=== PATIENT | male | born 1955 | race Caucasian/White ===

== ENCOUNTER 2016-10-30 14:28 | Emergency (ER) | payer MEDICAID, OTHER ==
[2016-10-30] MEDS ORDERED: Bacitracin Zinc 1 Packet ONE (15:19)
[2016-10-30] MEDS ORDERED: Sulfameth/Trimethoprim DS 800-160mg TAB ONE (15:24)
--- NOTE | 2016-10-30 23:49 | RAD ---
LEFT THIRD FINGER: Date: 10-30-16 FINDINGS: Three views show a soft tissue laceration. No fracture or opaque foreign body was seen. There are no acute joint abnormalities. There are probably old post-traumatic degenerative changes in the first carpal metacarpal joint. IMPRESSION: No acute bony findings. POS: HOME
== END 2016-10-30 15:29 | disposition home or self-care (01) ==
LOC: BURERS 14:28
DX: S61.213A Laceration without foreign body of left middle finger without damage to nail, initial encounter (principal); I10 Essential (primary) hypertension; E78.5 Hyperlipidemia, unspecified; I25.10 Atherosclerotic heart disease of native coronary artery without angina pectoris; I25.2 Old myocardial infarction; Z79.899 Other long term (current) drug therapy; W20.8XXA Other cause of strike by thrown, projected or falling object, initial encounter
CPT/HCPCS: 12002; J2001

== ENCOUNTER 2017-04-15 01:07 | Emergency (ER) | payer OTHER ==
[2017-04-15] MEDS ORDERED: Nitroglycerin 50 MG/250 ML BOT 250 ML ONE (01:19)
[2017-04-15] MEDS ORDERED: Furosemide 100 MG/10 ML VIAL ONE (01:19)
[2017-04-15 01:25] LABS: #Basophils 0.1 thou/uL (0.0-0.2); #Eosinphils 0.6 thou/uL (0.0-0.7); #Monocytes 0.6 thou/uL (0.11-0.59); #Neutrophils 5.2 thou/uL (1.40-6.50); %Basophils 1.3 % (0.0-1.0); %Eosinophils 6.7 % (0.0-10.0); %Lymphocytes 30.9 % (21.0-51.0); %Monocytes 6.7 % (0.0-10.0); %Neutrophils 54.4 % (42.0-75.0); Hemoglobin 13.1 g/dL (14.0-18.0); Mean Corpuscular HGB CONC 32.2 g/dL (32.0-36.0); Mean Corpuscular Hemoglobin 29.4 pg (27.0-31.0); Mean Corpuscular Volume 91.3 fl (80.0-94.0); Mean Platelet Volume 6.8 fL (7.4-10.4); Platelet Count 280 thou/uL (130-400); RBC Distribution Width 13.6 % (11.5-14.5); Red Blood Cell (RBC) Count 4.47 mill/uL (4.70-6.10); White Blood Cell (WBC) Count 9.6 thou/uL (4.8-10.8)
[2017-04-15 01:43] LABS: CKMB 2.1 ng/mL (0-6.6); Troponin I 0.052 ng/mL (< 0.028)
[2017-04-15 01:52] LABS: ALT (SGPT) 30 U/L (8-55); AST (SGOT) 45 U/L (5-34); Albumin 3.8 g/dL (3.4-4.8); Alkaline Phosphatase 83 U/L (40-150); Anion Gap 14 mmol/L (10-20); BUN (Urea Nitrogen) 43 mg/dL (8.4-25.7); Bilirubin, Total 0.4 mg/dL (0.2-1.2); Calc. Creatinine Clearance 0 mL/min (70-130); Calcium 8.8 mg/dL (7.8-10.44); Carbon Dioxide 22 mmol/L (23-31); Chloride 110 mmol/L (98-107); Estimated GFR-MDRD 23; Glucose 126 mg/dL (80-115); Potassium 4.1 mmol/L (3.5-5.1); Protein, Total 7.8 g/dL (5.8-8.1); Sodium 142 mmol/L (136-145)
[2017-04-15] MEDS ORDERED: Lisinopril 5 MG TAB ONE (01:52)
[2017-04-15 02:19] LABS: Bilirubin Negative (Negative); Blood, Urine Small (Negative); Clarity Clear (Clear); Glucose, Urine (Dipstick) Negative (Negative); Leukocyte Negative (Negative); Nitrite Negative (Negative); Specific Gravity, Urine 1.025 (1.005-1.030); Urobilinogen 0.2 mg/dL (0.2-1.0); pH, Urine 6.5 (5.0-9.0)
[2017-04-15 02:20] LABS: Protein, Urine (Dipstick) > or equal to 300 mg/dL (Neg-Trace)
[2017-04-15 02:25] LABS: Bacteria/HPF Rare-Few HPF (None Seen); Squamous Epithelial 0-3 HPF (0-3); WBC/HPF 0-3 HPF (0-3)
--- NOTE | 2017-04-15 09:00 | RAD ---
PORTABLE CHEST: HISTORY: Shortness of breath. COMPARISON: 12/19/15. FINDINGS: Cardiomegaly with postop sternotomy change. Mild vascular congestion. Interstitial prominence sugge sts interstitial congestion. No significant effusion. No confluent infiltrate. IMPRESSION: Cardiomegaly with mild congestive changes as noted. POS: [facility]
== END 2017-04-15 03:30 | disposition home or self-care (01) ==
LOC: BURERS 01:07
DX: I13.0 Hypertensive heart and chronic kidney disease with heart failure and stage 1 through stage 4 chronic kidney disease, or unspecified chronic kidney disease (principal); I50.9 Heart failure, unspecified; N18.3 Chronic kidney disease, stage 3 (moderate); Z91.14 Patient's other noncompliance with medication regimen; E78.5 Hyperlipidemia, unspecified; I25.2 Old myocardial infarction; I25.10 Atherosclerotic heart disease of native coronary artery without angina pectoris
CPT/HCPCS: 71010; 80053; 81003; 81015; 82553; 83880; 84484; 85025; 93005; 94640; 94660; 94760; 96365; 96366; 96375; J1940; J7620

== ENCOUNTER 2017-07-13 21:39 | Emergency (ER) | payer OTHER ==
[2017-07-13] MEDS ORDERED: Nitroglycerin 0.4 MG TAB (25 Tab Bottle) ONE ×2 (21:53→21:54)
[2017-07-13] MEDS ORDERED: Metoprolol Tartrate 5 MG/5 ML VIAL ONE ×2 (21:53→22:02)
[2017-07-13] MEDS ORDERED: Nitroglycerin 50 MG/250 ML BOT 250 ML ONE (21:54)
[2017-07-13 22:03] LABS: #Basophils 0.1 thou/uL (0.0-0.2); #Eosinphils 0.7 thou/uL (0.0-0.7); #Lymphocytes 2.8 thou/uL (1.20-3.40); #Monocytes 0.8 thou/uL (0.11-0.59); #Neutrophils 5.5 thou/uL (1.40-6.50); %Basophils 1.4 % (0.0-1.0); %Eosinophils 6.9 % (0.0-10.0); %Lymphocytes 28.6 % (21.0-51.0); %Monocytes 7.7 % (0.0-10.0); %Neutrophils 55.4 % (42.0-75.0); Hemoglobin 14.7 g/dL (14.0-18.0); Mean Corpuscular HGB CONC 35.4 g/dL (32.0-36.0); Mean Corpuscular Hemoglobin 30.5 pg (27.0-31.0); Mean Corpuscular Volume 86.3 fl (80.0-94.0); Mean Platelet Volume 7.8 fL (7.4-10.4); Platelet Count 256 thou/uL (130-400); RBC Distribution Width 13.9 % (11.5-14.5); Red Blood Cell (RBC) Count 4.81 mill/uL (4.70-6.10); White Blood Cell (WBC) Count 9.9 thou/uL (4.8-10.8)
[2017-07-13 22:17] LABS: ALT (SGPT) 20 U/L (8-55); AST (SGOT) 15 U/L (5-34); Albumin 3.6 g/dL (3.4-4.8); Alkaline Phosphatase 96 U/L (40-150); Anion Gap 16 mmol/L (10-20); BUN (Urea Nitrogen) 55 mg/dL (8.4-25.7); Bilirubin, Total 0.2 mg/dL (0.2-1.2); Calc. Creatinine Clearance 0 mL/min (70-130); Calcium 9.3 mg/dL (7.8-10.44); Carbon Dioxide 20 mmol/L (23-31); Chloride 106 mmol/L (98-107); Estimated GFR-MDRD 20; Globulin 3.5 g/dL (2.4-3.5); Glucose 116 mg/dL (80-115); Lipase 65 U/L (8-78); Potassium 4.3 mmol/L (3.5-5.1); Protein, Total 7.1 g/dL (5.8-8.1); Sodium 138 mmol/L (136-145)
[2017-07-13 22:18] LABS: CKMB 1.6 ng/mL (0-6.6); Troponin I 0.046 ng/mL (< 0.028)
[2017-07-13] MEDS ORDERED: Enoxaparin Sodium 100 MG/ML SYRINGE ONE (22:31)
[2017-07-13] MEDS ORDERED: Furosemide 40 MG/4 ML VIAL ONE (22:31)
[2017-07-13] MEDS ORDERED: Ondansetron HCl/PF 4 MG/2 ML Vial ONE (22:31)
[2017-07-13] MEDS ORDERED: Ketorolac Tromethamine 30 MG/ML VIAL ONE (22:48)
[2017-07-14] MEDS ORDERED: Acetaminophen/Codeine 120-12MG/5 ML UDCUP ONE (09:09)
--- NOTE | 2017-07-14 09:15 | RAD ---
PORTABLE CHEST: Date: 07/13/17 An AP portable film at 2149 hours is compared to the 04/15/17 study. FINDINGS: Moderate cardiomegaly is about the same as before. There are no clear congestive changes or pleural e ffusions. No focal pulmonary infiltrates are seen. IMPRESSION: Moderate cardiomegaly. POS: HOME
== END 2017-07-13 22:59 | disposition left against medical advice (07) ==
LOC: BURERS 21:39
DX: I20.0 Unstable angina (principal); I13.0 Hypertensive heart and chronic kidney disease with heart failure and stage 1 through stage 4 chronic kidney disease, or unspecified chronic kidney disease; N18.9 Chronic kidney disease, unspecified; I50.9 Heart failure, unspecified; J44.9 Chronic obstructive pulmonary disease, unspecified; F17.210 Nicotine dependence, cigarettes, uncomplicated; Z79.899 Other long term (current) drug therapy
CPT/HCPCS: 71045; 80053; 82553; 83690; 83880; 84484; 85025; 93005; 94760; 96365; 96375; J1650; J1885; J1940; J2270; J2405

== ENCOUNTER 2017-07-30 21:44 | Emergency (ER) | payer OTHER ==
[2017-07-30] MEDS ORDERED: Nitroglycerin 0.4 MG TAB (25 Tab Bottle) ONE (21:52)
[2017-07-30 22:07] LABS: #Basophils 0.1 thou/uL (0.0-0.2); #Eosinphils 0.6 thou/uL (0.0-0.7); #Lymphocytes 2.4 thou/uL (1.20-3.40); #Monocytes 0.6 thou/uL (0.11-0.59); #Neutrophils 5.8 thou/uL (1.40-6.50); %Eosinophils 6.8 % (0.0-10.0); %Lymphocytes 24.9 % (21.0-51.0); %Monocytes 6.5 % (0.0-10.0); %Neutrophils 60.8 % (42.0-75.0); Hemoglobin 14.3 g/dL (14.0-18.0); Mean Corpuscular HGB CONC 35.7 g/dL (32.0-36.0); Mean Corpuscular Volume 86.8 fl (80.0-94.0); Mean Platelet Volume 7.3 fL (7.4-10.4); Platelet Count 205 thou/uL (130-400); RBC Distribution Width 14.2 % (11.5-14.5); Red Blood Cell (RBC) Count 4.63 mill/uL (4.70-6.10); White Blood Cell (WBC) Count 9.5 thou/uL (4.8-10.8)
[2017-07-30 22:20] LABS: ALT (SGPT) 13 U/L (8-55); AST (SGOT) 15 U/L (5-34); Albumin 3.8 g/dL (3.4-4.8); Alkaline Phosphatase 84 U/L (40-150); Anion Gap 15 mmol/L (10-20); BUN (Urea Nitrogen) 38 mg/dL (8.4-25.7); Bilirubin, Total 0.3 mg/dL (0.2-1.2); Calc. Creatinine Clearance 0 mL/min (70-130); Calcium 8.8 mg/dL (7.8-10.44); Carbon Dioxide 23 mmol/L (23-31); Chloride 108 mmol/L (98-107); Estimated GFR-MDRD 19; Globulin 3.4 g/dL (2.4-3.5); Glucose 121 mg/dL (80-115); Lipase 50 U/L (8-78); Protein, Total 7.2 g/dL (5.8-8.1); Sodium 142 mmol/L (136-145)
[2017-07-30] MEDS ORDERED: Nitroglycerin 50 MG/250 ML BOT 250 ML ONE (22:20)
[2017-07-30] MEDS ORDERED: Metoprolol Tartrate 5 MG/5 ML VIAL ONE ×4 (22:20→23:13)
[2017-07-30 22:22] LABS: CKMB 1.8 ng/mL (0-6.6); Troponin I 0.071 ng/mL (< 0.028)
[2017-07-30] MEDS ORDERED: methylPREDNISolone Sod Succ/PF 125 MG/2 ML VIAL ONE (22:31)
[2017-07-30] MEDS ORDERED: hydrOXYzine 25 MG TAB ONE (22:31)
[2017-07-30] MEDS ORDERED: Furosemide 100 MG/10 ML VIAL ONE (22:59)
--- NOTE | 2017-07-30 23:07 | RAD ---
PORTABLE CHEST: Date: 07-30-17 Comparison: 07-13-17 FINDINGS: Today's portable study at 2140 shows mild to moderate cardiomegaly that is about the same as before. There is no definite congestion or effusions. Lungs are clear. The trachea is midline. IMPRESSION: Cardiomegaly but no acute findings. POS: HOME
[2017-07-30] MEDS ORDERED: Ondansetron HCl/PF 4 MG/2 ML Vial ONE (23:13)
== END 2017-07-31 00:25 | disposition short-term general hospital (02) ==
LOC: BURERS 21:44
DX: I13.0 Hypertensive heart and chronic kidney disease with heart failure and stage 1 through stage 4 chronic kidney disease, or unspecified chronic kidney disease (principal); N18.9 Chronic kidney disease, unspecified; I50.9 Heart failure, unspecified; I20.0 Unstable angina; I25.2 Old myocardial infarction; J44.9 Chronic obstructive pulmonary disease, unspecified; F17.210 Nicotine dependence, cigarettes, uncomplicated; Z79.82 Long term (current) use of aspirin; Z79.899 Other long term (current) drug therapy
CPT/HCPCS: 71045; 80053; 82553; 83690; 83880; 84484; 85025; 93005; 94760; 96365; 96366; 96375; J1940; J2405; J2930

== ENCOUNTER 2018-06-05 01:04 | Emergency (ER) | payer MEDICARE, OTHER ==
[2018-06-05] MEDS ORDERED: methylPREDNISolone Sod Succ/PF 125 MG/2 ML VIAL ONE (01:51)
[2018-06-05 02:08] LABS: #Basophils 0.1 thou/uL (0.0-0.2); #Eosinphils 0.6 thou/uL (0.0-0.7); #Lymphocytes 1.8 thou/uL (1.20-3.40); #Monocytes 0.7 thou/uL (0.11-0.59); #Neutrophils 7.5 thou/uL (1.40-6.50); %Basophils 1.4 % (0.0-1.0); %Eosinophils 5.7 % (0.0-10.0); %Lymphocytes 16.5 % (21.0-51.0); %Monocytes 6.7 % (0.0-10.0); %Neutrophils 69.7 % (42.0-75.0); Hemoglobin 13.1 g/dL (14.0-18.0); Mean Corpuscular HGB CONC 32.4 g/dL (32.0-36.0); Mean Corpuscular Hemoglobin 28.6 pg (27.0-31.0); Mean Corpuscular Volume 88.5 fL (78.0-98.0); Mean Platelet Volume 7.4 fL (7.4-10.4); Platelet Count 223 thou/uL (130-400); RBC Distribution Width 13.7 % (11.5-14.5); Red Blood Cell (RBC) Count 4.58 mill/uL (4.70-6.10); White Blood Cell (WBC) Count 10.7 thou/uL (4.8-10.8)
[2018-06-05 02:25] LABS: ALT (SGPT) 15 U/L (8-55); AST (SGOT) 18 U/L (5-34); Albumin 3.9 g/dL (3.4-4.8); Alkaline Phosphatase 77 U/L (40-150); Anion Gap 14 mmol/L (10-20); BUN (Urea Nitrogen) 39 mg/dL (8.4-25.7); Bilirubin, Total 0.3 mg/dL (0.2-1.2); Calc. Creatinine Clearance 0 mL/min (70-130); Calcium 9.3 mg/dL (7.8-10.44); Carbon Dioxide 23 mmol/L (23-31); Chloride 110 mmol/L (98-107); Estimated GFR-MDRD 21; Globulin 3.2 g/dL (2.4-3.5); Glucose 102 mg/dL (80-115); Potassium 3.7 mmol/L (3.5-5.1); Protein, Total 7.1 g/dL (5.8-8.1); Sodium 143 mmol/L (136-145)
[2018-06-05] MEDS ORDERED: Benzonatate 100 MG CAP ONE (02:42)
[2018-06-05] MEDS ORDERED: Azithromycin 250 MG TAB ONE (02:42)
[2018-06-05 02:48] LABS: CKMB 3.5 ng/mL (0-6.6)
--- NOTE | 2018-06-05 07:59 | RAD ---
CHEST ONE VIEW: History: Difficulty breathing. Comparison: 08-03-17 FINDINGS: There is moderate cardiomegaly with mild pulmonary vascular congestion. No consolidation, pleural eff usion, or pneumothorax is evident. No acute osseous abnormality is evident. IMPRESSION: Moderate cardiomegaly with mild pulmonary vascular congestion. POS: [facility]
== END 2018-06-05 02:47 | disposition left against medical advice (07) ==
LOC: BURERS 01:04
DX: I21.4 Non-ST elevation (NSTEMI) myocardial infarction (principal); I10 Essential (primary) hypertension; J44.9 Chronic obstructive pulmonary disease, unspecified; I25.10 Atherosclerotic heart disease of native coronary artery without angina pectoris; F17.210 Nicotine dependence, cigarettes, uncomplicated; Z79.899 Other long term (current) drug therapy; Z79.82 Long term (current) use of aspirin
CPT/HCPCS: 71045; 80053; 82553; 84484; 85025; 93005; 94640; 96374; J2930; J7620

== ENCOUNTER 2018-12-18 04:15 | Emergency (ER) | payer MEDICARE, OTHER ==
[2018-12-18] MEDS ORDERED: methylPREDNISolone Sod Succ/PF 125 MG/2 ML VIAL ONE (04:36)
[2018-12-18 04:41] LABS: #Basophils 0.2 thou/uL (0.0-0.2); #Eosinphils 0.6 thou/uL (0.0-0.7); #Lymphocytes 4.2 thou/uL (1.20-3.40); #Monocytes 0.8 thou/uL (0.11-0.59); %Basophils 1.4 % (0.0-1.0); %Eosinophils 5.1 % (0.0-10.0); %Lymphocytes 35.6 % (21.0-51.0); %Monocytes 7.1 % (0.0-10.0); %Neutrophils 50.8 % (42.0-75.0); Hemoglobin 13.4 g/dL (14.0-18.0); Mean Corpuscular HGB CONC 31.4 g/dL (32.0-36.0); Mean Corpuscular Hemoglobin 28.1 pg (27.0-31.0); Mean Corpuscular Volume 89.6 fL (78.0-98.0); Mean Platelet Volume 7.2 fL (7.4-10.4); Platelet Count 264 thou/uL (130-400); RBC Distribution Width 14.6 % (11.5-14.5); Red Blood Cell (RBC) Count 4.76 mill/uL (4.70-6.10); White Blood Cell (WBC) Count 11.7 thou/uL (4.8-10.8)
[2018-12-18] MEDS ORDERED: Nitroglycerin 2% Ointment 1 INCH/1 GM Packet ONE (04:49)
[2018-12-18 04:50] LABS: ALT (SGPT) 15 U/L (8-55); AST (SGOT) 15 U/L (5-34); Albumin 4.2 g/dL (3.4-4.8); Alkaline Phosphatase 99 U/L (40-150); Anion Gap 18 mmol/L (10-20); BUN (Urea Nitrogen) 53 mg/dL (8.4-25.7); Bilirubin, Total 0.3 mg/dL (0.2-1.2); Calc. Creatinine Clearance 0 mL/min (70-130); Calcium 9.2 mg/dL (7.8-10.44); Carbon Dioxide 20 mmol/L (23-31); Chloride 108 mmol/L (98-107); Estimated GFR-MDRD 16; Lipase 46 U/L (8-78); Potassium 4.4 mmol/L (3.5-5.1); Protein, Total 8.2 g/dL (5.8-8.1); Sodium 142 mmol/L (136-145)
[2018-12-18 04:53] LABS: INR-International Normal Ratio 1.2; PTT 28.5 SEC (22.9-36.1)
[2018-12-18 04:56] LABS: Glucose 164 mg/dL (80-115)
[2018-12-18 04:57] LABS: MDiff Complete? YES; Manual Diff?? NO
[2018-12-18] MEDS ORDERED: Aspirin Chewable 81 MG TAB ONE (05:24)
[2018-12-18] MEDS ORDERED: Furosemide 40 MG/4 ML VIAL ONE (05:24)
--- NOTE | 2018-12-18 08:28 | RAD ---
PORTABLE CHEST: DATE: 12/18/2018. FINDINGS: An AP portable film at 0439 is compared with a 06/05/2018 study. The heart is markedly enlarged but unchanged in size. There is no clear vascular congestion at this point. No effusions are seen. No lobar infiltrates were present, but with the sensitivity of the st udy the small infiltrates would be low, particular in the lower halves of the lungs. IMPRESSION: Moderate cardiomegaly without definite acute findings. POS: HOME
== END 2018-12-18 06:20 | disposition short-term general hospital (02) ==
LOC: BURERS 04:15
DX: J81.0 Acute pulmonary edema (principal); I25.2 Old myocardial infarction; I10 Essential (primary) hypertension; J44.9 Chronic obstructive pulmonary disease, unspecified; I25.10 Atherosclerotic heart disease of native coronary artery without angina pectoris; F17.210 Nicotine dependence, cigarettes, uncomplicated; Z79.899 Other long term (current) drug therapy; Z79.82 Long term (current) use of aspirin
CPT/HCPCS: 71045; 80053; 83605; 83690; 83880; 84443; 85025; 85610; 85730; 93005; 94640; 94660; 94760; 96374; 96375; J1940; J2930; J7620